=== PATIENT | female | born 1950 | race Caucasian/White ===

== ENCOUNTER 2024-11-25 04:15 | Emergency (ER) | payer MEDICARE, OTHER ==
[~2024-11-25] VITALS: Ht 160 cm; Wt 75.0 kg
[~2024-11-25 04:15] MED LIST: DIAZ-328 PO; DULO60CA73 PO; GABA-1181 PO; HYDR-4061 PO; METO-325 PO; PERCT PO; SIMV-261 PO
[2024-11-25 04:24] VITALS: BP 122/75; PULSE 85; RESP 14; TEMP 98.2; O2SAT 98
[2024-11-25 05:48] LABS: COVID AG,FIA SOURCE NASAL SWAB
[2024-11-25 06:07] LABS: SARS-COV2 (COVID) ANTIGEN,FIA Negative (Negative)
[2024-11-25 06:08] LABS: PLATELET COUNT (AUTO) 325 K/uL (150-450); RED BLOOD CELL COUNT(AUTO) 3.36 MIL/uL (4.00-5.20); RED CELL DISTRIBUTION WIDTH 15.4 % (11.5-14.5); WHITE BLOOD COUNT (AUTO) 2.9 K/uL (4.5-11.0)
[2024-11-25 06:10] LABS: APPEARANCE,URINE CLEAR (CLEAR); GLUCOSE, URINE (UA) NEGATIVE (NEGATIVE); LEUKOCYTE ESTERASE ,URINE MODERATE (NEGATIVE); OCCULT BLOOD,URINE NEGATIVE (NEGATIVE); SPECIFIC GRAVITIY, URINE 1.009 (1.003-1.030)
[2024-11-25 06:22] LABS: CALCIUM, TOTAL 8.2 mg/dL (8.8-10.5); CREATININE 0.72 mg/dL (0.60-1.30); GLOMERULAR FILTR. RATE CALC > 60 mL/min (>60); GLUCOSE,RANDOM 83 mg/dL (70-110); SODIUM SERUM 140 mmol/L (136-145); UREA NITROGEN, BLOOD 15 mg/dL (7-18)
[2024-11-25 06:51] LABS: NITRATE,URINE POSITIVE (NEGATIVE)
[2024-11-25 06:52] LABS: SQUAMOUS EPITHELIAL CELL,UR Few /LPF (None Seen)
== END 2024-11-25 07:45 | disposition home or self-care (01) ==
LOC: EMS 04:20
DX: G89.29 Other chronic pain (principal); R42 Dizziness and giddiness; E78.00 Pure hypercholesterolemia, unspecified; F31.9 Bipolar disorder, unspecified; I10 Essential (primary) hypertension; F11.90 Opioid use, unspecified, uncomplicated; Z98.84 Bariatric surgery status; Z90.49 Acquired absence of other specified parts of digestive tract; Z65.3 Problems related to other legal circumstances; Z79.899 Other long term (current) drug therapy; Z88.5 Allergy status to narcotic agent; Z20.822 Contact with and (suspected) exposure to COVID-19
CPT/HCPCS: 99285; 87426; 80048; 81001; 85025; 87077; 87086; 36415; G0480; 87186

== ENCOUNTER 2024-11-25 08:18 | Emergency (ER) | payer MEDICARE | END 2024-11-25 11:26 | disposition home or self-care (01) | LOC: EMS 08:18 | DX: F31.9 Bipolar disorder, unspecified (principal); E78.00 Pure hypercholesterolemia, unspecified; I10 Essential (primary) hypertension; Z88.6 Allergy status to analgesic agent; Z90.49 Acquired absence of other specified parts of digestive tract; Z98.84 Bariatric surgery status | CPT/HCPCS: 99283; Z7502 ==